=== PATIENT | female | born 1990 | race Caucasian/White ===

== ENCOUNTER 2020-07-30 17:18 | Emergency (ER) | payer OTHER ==
[~2020-07-30] VITALS: Ht 167.6 cm; Wt 117.9 kg
[2020-07-30] MEDS ORDERED: CHILDREN'S ASPI81 M1 PO (17:27)
[2020-07-30] MEDS ORDERED: METFORMIN HCL500 M3 PO (17:27)
[2020-07-30] MEDS ORDERED: ZOFRAN ODT4 MG PO (18:24)
[2020-07-30] MEDS ORDERED: REGLAN 10 MG TA10 MG PO (18:32)
[2020-07-30 18:39] VITALS: BP 150/91
== END 2020-07-30 18:40 | disposition home or self-care (01) ==
LOC: M.ERS 17:18
DX: U07.1 COVID-19 (principal); Z98.890 Other specified postprocedural states